=== PATIENT | male | born 1950 ===

== ENCOUNTER 2024-02-29 18:01 | Outpatient (REF) | payer MEDICARE, MEDICAID, SELFPAY ==
[2024-02-29 21:13] LABS: HCT 44.5 % (40.0-50.0); HGB 15.4 g/dL (13.5-17.5); MCH 31.4 pg (27.0-33.0); MCHC 34.6 % (32.0-36.0); MCV 91 fL (80-95); MPV 9.1 fL (8.0-11.0); Platelet Count 298 10^3/uL (130-400); RDW 13.3 % (11.8-14.1); RDW-SD 45.1 fL; WBC 10.85 10^3/uL (4.4-10.8)
[2024-02-29 21:18] LABS: ALT 13 U/L (16-63); AST 15 U/L (15-37); Albumin 4.1 g/dL (3.4-5.0); Alkaline Phosphatase 85 U/L (46-116); Anion Gap 6.1 mmol/L (3-11); BUN 10 mg/dL (7-18); Bilirubin, Total 0.53 mg/dL (0.2-1.0); CO2 28.9 mmol/L (21.0-32.0); CREATININE 1.1 mg/dL (0.70-1.30); Calcium 9.4 mg/dL (8.5-10.1); Chloride 102 mmol/L (98-107); Estimated GFR 70.01 (mL/min/1.73m2); Glucose 107 mg/dL (74-106); Potassium 4.4 mmol/L (3.5-5.1); Sodium 137 mmol/L (136-145); Total Protein 7.6 g/dL (6.4-8.2)
== END 2024-02-29 18:02 | disposition home or self-care (01) ==
LOC: NCHCN 18:01
PROVIDERS: Visit Provider Internal Medicine
DX: F10.21 Alcohol dependence, in remission (principal)
CPT/HCPCS: 80053; 85027